=== PATIENT | male | born 1975 | race Caucasian/White ===

== ENCOUNTER → 2023-03-09 16:15 | Outpatient (CLI) | payer SELFPAY ==
--- NOTE | 2023-03-09 16:22 | DI.RAD.S_ITS ---
PROCEDURE: XR FOREARM RT 2V INDICATIONS: right arm injury TECHNIQUE: 2 views of the forearm were acquired. COMPARISON: None. FINDINGS: Bones: Minimally displaced intra-articular radial head fracture is redemonstrated. Otherwise, no acute fractures within the radius or ulna. No suspicious bony lesions. Soft tissues: No suspicious soft tissue calcifications or masses. IMPRESSION: Minimally displaced intra-articular radial head fracture is redemonstrated. Otherwise, no acute fractures within the radius or ulna. Dictated by: Damián Alegria M.D. on 03/09/2023 at 17:02 Approved by: Damián Alegria M.D. on 03/09/2023 at 17:03
--- NOTE | 2023-03-09 16:22 | DI.RAD.S_ITS ---
PROCEDURE: XR WRIST RT MIN 3V INDICATIONS: right arm injury TECHNIQUE: 4 views of the wrist were acquired. COMPARISON: None. FINDINGS: Bones: No fractures or dislocations. No suspicious bony lesions. Soft tissues: No suspicious soft tissue calcifications. IMPRESSION: No acute fracture or dislocation is seen. Dictated by: Damián Alegria M.D. on 03/09/2023 at 17:01 Approved by: Damián Alegria M.D. on 03/09/2023 at 17:01
--- NOTE | 2023-03-09 16:22 | DI.RAD.S_ITS ---
PROCEDURE: XR HAND RT MIN 3V INDICATIONS: right lower arm injury TECHNIQUE: 3 views of the hand(s) acquired. COMPARISON: None. FINDINGS: Bones: No fractures or dislocations. Carpal bones are normally aligned. No suspicious bony lesions. Soft tissues: No suspicious soft tissue calcifications. IMPRESSION: No acute bony abnormality. Dictated by: Damián Alegria M.D. on 03/09/2023 at 17:01 Approved by: Damián Alegria M.D. on 03/09/2023 at 17:02
--- NOTE | 2023-03-09 16:22 | DI.RAD.S_ITS ---
PROCEDURE: XR ELBOW RT MIN 3V INDICATIONS: right arm injury TECHNIQUE: 3 views of the elbow were acquired. COMPARISON: None. FINDINGS: Bones: Minimally displaced radial head fracture with intra-articular extension. No suspicious bony lesions. Soft tissues: Small elbow joint effusion. No suspicious soft tissue calcifications. IMPRESSION: Minimally displaced intra-articular radial head fracture. Dictated by: Damián Alegria M.D. on 03/09/2023 at 17:00 Approved by: Damián Alegria M.D. on 03/09/2023 at 17:01
== END ==
LOC: DI 16:20
PROVIDERS: Referring Provider Physician Assistant; Visit Provider Physician Assistant
DX: S52.124A Nondisplaced fracture of head of right radius, initial encounter for closed fracture (principal); S59.911A Unspecified injury of right forearm, initial encounter; X58.XXXA Exposure to other specified factors, initial encounter
CPT/HCPCS: 73080; 73090; 73110; 73130

== ENCOUNTER → 2023-05-30 14:16 | Outpatient (CLI) | payer SELFPAY ==
[2023-05-30 15:10] LABS: Add Manual Diff / Slide Review NO; Basophils Absolute Auto 0 /uL (0-100); Basophils Percent Auto 0.5 % (0-2); Eosinophils Absolute Auto 500 /uL (0-450); Eosinophils Percent Auto 5.5 % (2-4); Hematocrit 44.8 % (41-53); Hemoglobin 15.5 g/dL (13.5-17.5); Lymphocytes Absolute Auto 1400 /uL (1100-4500); Lymphocytes Percent Auto 13.9 % (25-40); Mean Corpuscular HGB Conc 34.6 % (30-36); Mean Corpuscular Hemoglobin 31.7 PG (26-34); Mean Corpuscular Volume 91.5 fL (80-100); Monocytes Absolute Auto 800 /uL (0-900); Monocytes Percent Auto 7.7 % (3-14); Neutrophils Absolute Auto 7300 /uL (1500-7000); Neutrophils Percent Auto 72.4 % (50-75); Platelet Count 287 X10^3/uL (150-400); Red Cell Distribution Width 13.4 % (11.6-14.8)
[2023-05-30 15:16] LABS: Hemoglobin A1C% w Est Avg Glu 5.3 % (4.0-6.0)
[2023-05-30 15:33] LABS: Alanine Aminotransferase 41 IU/L (<50); Albumin 4.4 g/dL (3.5-5.0); Albumin Globulin Ratio 1.2 (1.0-2.8); Alkaline Phosphatase 82 U/L (38-126); Aspartate Aminotransferase 36 IU/L (17-59); BUN Creatinine Ratio 9.1 (6-22); Bilirubin Total 1.9 mg/dL (0.2-1.3); Blood Urea Nitrogen 10 mg/dL (9-20); Calcium 9.7 mg/dL (8.4-10.2); Carbon Dioxide 26 mmol/L (22-32); Chloride 98 mmol/L (98-107); Cholesterol 195 mg/dL (140-199); Estimated Glomerular Filt Rate > 60 mL/min (>60); Globulin 3.6 g/dL (1.7-4.1); Glucose 121 mg/dL (70-100); HDL Cholesterol 69 mg/dL (40-60); HEMOLYSIS < 15 (0-50); LDL Cholesterol Calculated 98 mg/dL (<100); Potassium 3.7 mmol/L (3.4-5.1); Sodium 136 mmol/L (137-145); Triglycerides 138 mg/dL (35-150)
== END ==
LOC: LAB 14:21
PROVIDERS: PCP Family Medicine; Referring Provider Family Medicine; Visit Provider Family Medicine
DX: Z13.6 Encounter for screening for cardiovascular disorders (principal); S06.9XAA Unspecified intracranial injury with loss of consciousness status unknown, initial encounter; E66.9 Obesity, unspecified
CPT/HCPCS: 36415; 80053; 80061; 83036; 85025

== ENCOUNTER 2023-10-21 12:34 | Inpatient (IN) | payer OTHER, MEDICAID, SELFPAY ==
[2023-10-21] VITALS (19 sets, daily range): BP systolic 134–212; BP diastolic 101–134; PULSE 72–126; RESP 16–29; TEMP 36.8–37.9; O2SAT 93–98; BMI 32.7
[2023-10-21 12:53] LABS: Add Manual Diff / Slide Review NO; Basophils Absolute Auto 100 /uL (0-100); Basophils Percent Auto 0.4 % (0-2); Eosinophils Absolute Auto 0 /uL (0-450); Eosinophils Percent Auto 0.1 % (2-4); Hematocrit 49.1 % (41-53); Hemoglobin 16.9 g/dL (13.5-17.5); Lymphocytes Absolute Auto 2000 /uL (1100-4500); Lymphocytes Percent Auto 9.6 % (25-40); Mean Corpuscular HGB Conc 34.4 % (30-36); Mean Corpuscular Hemoglobin 30.6 PG (26-34); Monocytes Absolute Auto 1000 /uL (0-900); Monocytes Percent Auto 5.1 % (3-14); Neutrophils Absolute Auto 17200 /uL (1500-7000); Neutrophils Percent Auto 84.8 % (50-75); Platelet Count 293 X10^3/uL (150-400); Red Blood Cell Count 5.51 X10^6/uL (4.5-5.9); White Blood Cell Count 20.3 X10^3/uL (4.5-11.0)
--- NOTE | 2023-10-21 12:57 | ED.GENADULT ---
HPI - General Adult General Chief complaint: Abdominal Pain Stated complaint: seizures, rapid heartbeat Time Seen by Provider: 10/21/23 12:44 Source: patient Mode of arrival: Family Vehicle History of Present Illness HPI narrative: Patient is a 48-year-old male. History of TBI, cocaine use, seizure disorder who is here for evaluation of what she described as seizures this morning but he actually did not have a seizure today. He did use cocaine within the past week. He is here for palpitations, rapid heartbeat, chest pain, abdominal pain, decreased urine output. He was able to take his Keppra dose this morning did not vomit afterwards. All of his symptoms started about 0400 hours in the morning. He did not having the symptoms yesterday. Related Data Previous Rx's Medication Instructions Recorded levetiracetam 750 mg tablet 750 mg PO BID #180 tabs 10/20/23 Allergies Allergy/AdvReac Type Severity Reaction Status Date / Time No Known Drug Allergies Allergy Verified 10/21/23 12:45 Review of Systems Review of Systems ROS Unobtainable: All systems reviewed & are unremarkable except as noted in HPI and below Patient History Medical History Epilepsy (~2021) TBI (traumatic brain injury) Social History marital status: details: Moved from [facility]. 3 step boys. occupational status: employed (self employed) current occupational exposures/hazards: No Smoking Status: Current every day smoker Smoking Status: Current every day smoker alcohol intake frequency: 0-2 drinks per day Substance Use Type: marijuana and crack/cocaine Exam Initial Vital Signs Initial Vital Signs: Vital Signs Temperature 98.2 F 10/21/23 12:40 Pulse Rate 72 10/21/23 12:40 Respiratory Rate 16 10/21/23 12:40 Blood Pressure 202/127 H 10/21/23 12:40 Pulse Oximetry 98 10/21/23 12:40 Oxygen Delivery Method Room Air 10/21/23 12:40 Const General: cooperative HENMT Head: normal to inspection and normocephalic Resp Effort & Inspection: normal respiratory effort Auscultation: clear to auscultation bilaterally Cardio Rate: regular rate Rhythm: regular rhythm GI Inspection: non-distended Palpation: No firm, No guarding and tender Skin General: no rashes or lesions noted Neuro General: patient alert, patient awake and moves all extremities Course Orders Ordered: ED Orders 10/21/23 12:44 Complete Blood Count AUTO DIFF Stat Comprehensive Metabolic Panel Stat Ethanol (ETOH) Stat Lipase Stat Troponin & CK Cardiac Panel Stat 10/21/23 12:45 EKG-12 Lead Stat 10/21/23 12:59 CT angio chest abdomen pelvis Stat Sodium Chloride (Normal Saline 0.9%) 1,000 mls @ 150 mls/hr IV CONT EMILY Last Admin: 10/21/23 14:45 Dose: 150 mls/hr Documented By: GABRIEL Ondansetron HCl (Ondansetron 4 Mg/2 Ml Inj) 4 mg IV NOW PRN PRN Reason: Nausea And Vomiting Last Admin: 10/21/23 14:56 Dose: 4 mg Documented By: YIN Ondansetron HCl (Ondansetron 4 Mg Odt) 4 mg PO NOW PRN PRN Reason: Nausea And Vomiting Discontinued Medications Morphine Sulfate (Morphine 4 Mg/Ml Inj) 4 mg IV NOW ONE Stop: 10/21/23 14:32 Last Admin: 10/21/23 14:44 Dose: 4 mg Documented By: GABRIEL Vital Signs Vital signs: Vital Signs - 8 hr 10/21/23 12:40 Temperature 98.2 F Pulse Rate 72 Respiratory Rate 16 Blood Pressure 202/127 H Pulse Oximetry 98 Oxygen Delivery Method Room Air Medical Decision Making Lab Data Lab results reviewed: Yes I reviewed the patient's lab results. 10/21/23 12:44 10/21/23 12:44 Labs: Lab Results 10/21/23 Range/Units 12:44 WBC 20.3 H (4.5-11.0) X10^3/uL RBC 5.51 (4.5-5.9) X10^6/uL Hgb 16.9 (13.5-17.5) g/dL Hct 49.1 (41-53) % MCV 89.0 (80-100) fL MCH 30.6 (26-34) PG MCHC 34.4 (30-36) % RDW 13.0 (11.6-14.8) % Plt Count 293 (150-400) X10^3/uL Neut % (Auto) 84.8 H (50-75) % Lymph % (Auto) 9.6 L (25-40) % Day % (Auto) 5.1 (3-14) % Eos % (Auto) 0.1 L (2-4) % Baso % (Auto) 0.4 (0-2) % Neut # (Auto) 73469 H (0578-5762) /uL Lymph # (Auto) 2000 (0712-0315) /uL Day # (Auto) 1000 H (0-900) /uL Eos # (Auto) 0 (0-450) /uL Baso # (Auto) 100 (0-100) /uL Sodium 136 L (137-145) mmol/L Potassium 3.6 (3.4-5.1) mmol/L Chloride 102 (98-107) mmol/L Carbon Dioxide 23 (22-32) mmol/L BUN 11 (9-20) mg/dL Creatinine 0.86 (0.66-1.25) mg/dL Estimated GFR > 60 (>60) mL/min BUN/Creatinine Ratio 12.8 (6-22) Glucose 116 H (70-100) mg/dL Calcium 8.4 (8.4-10.2) mg/dL Total Bilirubin 1.5 H (0.2-1.3) mg/dL AST 40 (17-59) IU/L ALT 33 (<50) IU/L Alkaline Phosphatase 107 (38-126) U/L Total Creatine Kinase 201 H (55-170) U/L Troponin I < 0.012 (0.01-0.034) ng/mL Total Protein 8.2 (6.3-8.2) g/dL Albumin 4.5 (3.5-5.0) g/dL Globulin 3.7 (1.7-4.1) g/dL Albumin/Globulin Ratio 1.2 (1.0-2.8) Lipase 2769 H (23-300) U/L Ethyl Alcohol < 10 ( - 10) mg/dL Imaging Data CT chest/ab/pelvis: Radiologist's Impression: PROCEDURE: CT ANGIO CHEST ABDOMEN PELVIS INDICATIONS: Chest and abdominal pain, recent cocaine use TECHNIQUE: Precontrast 5 mm thick sections acquired from the lung apices to the iliac crests. After the administration of intravenous contrast, 2.5 mm thick sections again acquired from the lung apices to the iliac crests. Maximum intensity projection (MIP) oblique sagittal and coronal reformats were then acquired. For radiation dose reduction, the following was used: automated exposure control. COMPARISON: None. FINDINGS: Image quality: Diagnostic. AORTA: No aortic aneurysm. No acute aortic syndrome. CHEST: Lower Neck: No enlarged lymph nodes. Thyroid: No thyroid nodules which require sonographic evaluation. Axillae: No enlarged lymph nodes. Chest Wall: Unremarkable. Lungs and Pleura: No pneumothorax or pleural effusions. No consolidation or suspicious nodules. Heart: Heart size is normal. No pericardial effusion. Thoracic Vessels: Pulmonary arteries demonstrate normal size. Mediastinum and Renea: No enlarged lymph nodes. Esophagus: No wall thickening. No hiatal hernia. ABDOMEN: Liver: No solid mass. Gallbladder: No radiopaque gallstones or wall thickening. Biliary ducts: No biliary dilation. Pancreas: Homogeneous enhancement of the pancreas. Diffuse peripancreatic fat stranding. No adjacent vascular abnormality. No acute peripancreatic collection. Spleen: Size is within normal limits. Adrenal Glands: No adrenal nodules. Kidneys and Ureters: No hydronephrosis. No solid mass. No complex renal cystic lesion which requires follow up. Stomach and Bowel: Normal colonic caliber, without significant wall thickening. Peritoneum: Small volume ascites. Ventral Wall: Small umbilical hernia containing fat. Abdominal Nodes: No retroperitoneal or mesenteric adenopathy by size criteria. Vessels: Inferior vena cava is normal in size. PELVIS: Pelvic Organs: Unremarkable. Bladder: Unremarkable. Pelvic Nodes: No enlarged lymph nodes. Miscellaneous: Small inguinal hernias containing fat, left greater than right. Bones: Grade 1 anterolisthesis of L5 on S1 secondary to pars defects. IMPRESSION: No evidence of acute aortic syndrome. Acute interstitial pancreatitis without vascular complication or acute peripancreatic collection. Grade 1 anterolisthesis of L5 on S1 secondary to pars defects. ECG Data Attestation: I personally reviewed and interpreted this ECG as follows: Interpretation: Sinus rhythm Ventricular rate is 77 LVH Normal axis No ST T wave changes MDM Narrative Medical decision making narrative: Patient is a 48-year-old male. Unsure was whether not he actually had seizure-like activity earlier today but he was having upper abdominal discomfort and chest discomfort. It is also having vomiting. His lipase is elevated. CT scan shows acute pancreatitis and this does fit with his presentation today. Discussed the need for admission with the patient. Discussed the case with Dr. Perry hospitalist on-call who will admit for further evaluation and treatment. Discharge Plan Departure Patient Disposition: Admitted As Inpatient Clinical Impression: Acute pancreatitis Admit Date/Time: 10/21/23 16:12 Admit Provider: Simón Perry
--- NOTE | 2023-10-21 13:04 | EKG_ITS ---
[place] [id number] [address] [place] [id number] Test Date: 2023-10-21 Pat Name: Beverly Neal Department: [facility] Room: Gender: Male Spa Technician: LAILA : 1975 Requested By: Order Number: [id number] Reading MD: Simón Perry Measurements Intervals [place] Rate: 77 P: 28 WA: 164 QRS: 14 QRSD: 106 T: 28 QT: 404 QTc: 457 Interpretive Statements Normal sinus rhythm Minimal voltage criteria for LVH, may be normal variant ( Reynaldo product ) Electronically Signed On 10-23-2023 9:44:45 PDT by Simón Perry
[2023-10-21 13:07] LABS: Alanine Aminotransferase 33 IU/L (<50); Albumin 4.5 g/dL (3.5-5.0); Albumin Globulin Ratio 1.2 (1.0-2.8); Alkaline Phosphatase 107 U/L (38-126); Aspartate Aminotransferase 40 IU/L (17-59); BUN Creatinine Ratio 12.8 (6-22); Bilirubin Total 1.5 mg/dL (0.2-1.3); Blood Urea Nitrogen 11 mg/dL (9-20); Calcium 8.4 mg/dL (8.4-10.2); Carbon Dioxide 23 mmol/L (22-32); Chloride 102 mmol/L (98-107); Estimated Glomerular Filt Rate > 60 mL/min (>60); Globulin 3.7 g/dL (1.7-4.1); Glucose 116 mg/dL (70-100); Potassium 3.6 mmol/L (3.4-5.1); Sodium 136 mmol/L (137-145); Total Protein 8.2 g/dL (6.3-8.2)
[2023-10-21 13:15] LABS: Creatine Kinase 201 U/L (55-170); Ethanol (ETOH) < 10 mg/dL
[2023-10-21 13:26] LABS: Lipase 2769 U/L (23-300)
[2023-10-21 13:28] LABS: HEMOLYSIS 27 (0-50); Troponin I < 0.012 ng/mL (0.01-0.034)
[2023-10-21] MEDS: MORPHINE 4 MG/ML INJ IV (14:44)
[2023-10-21] MEDS: SODIUM CHLORIDE 0.9% 1,000 ML 150 ML IV (14:45)
[2023-10-21] MEDS: ONDANSETRON 4 MG/2 ML INJ IV (14:56)
--- NOTE | 2023-10-21 16:11 | P.HP_ITS ---
History of Present Illness History of Present Illness Date Patient Seen: 10/21/23 Time Patient Seen: 16:44 Chief complaint: seizures, rapid heartbeat Narrative: From ED notes: Patient is a 48-year-old male. History of TBI, cocaine use, seizure disorder who is here for evaluation of what she described as seizures this morning but he actually did not have a seizure today. He did use cocaine within the past week. He is here for palpitations, rapid heartbeat, chest pain, abdominal pain, decreased urine output. He was able to take his Keppra dose this morning did not vomit afterwards. All of his symptoms started about 0400 hours in the morning. He did not having the symptoms yesterday. S: The patient was somewhat vague and does not speak very much. He would several days of abdominal pain which is epigastric without radiation to the back. He has had vomiting since this morning. No hematemesis. He denies a history of pancreatitis but does have about 2 alcoholic beverages a day. He denies any diarrhea or rectal bleeding. No recent fevers, or chills. He lives in [place], with his . He has had some upper and lower abdominal pain. His blood pressure is 200 systolic upon arrival to the floor. He was also elevated in the ED, he denies a history of hypertension and saw the doctor yesterday and said his blood pressure was checked. [facility] Medical History Epilepsy (~2021) TBI (traumatic brain injury) Social History marital status: details: Moved from [facility]. 3 step boys. occupational status: employed (self employed) current occupational exposures/hazards: No Smoking Status: Current every day smoker Meds Home Medications and Allergies Home Medications Medication Instructions Recorded Confirmed Type levetiracetam 750 mg tablet 750 mg PO BID #180 tabs 10/20/23 10/20/23 Rx Allergies Allergy/AdvReac Type Severity Reaction Status Date / Time No Known Drug Allergies Allergy Verified 10/21/23 12:45 Review of Systems Review of Systems Narrative: All else reviewed and otherwise unremarkable except as noted in the history and physical. Exam Vital Signs (past 8 hours): - 10/21/23 12:40 Temperature 98.2 F Pulse Rate 72 Respiratory Rate 16 Blood Pressure 202/127 H Pulse Oximetry 98 Oxygen Delivery Method Room Air Oxygen Delivery Method Room Air Narrative Exam Narrative: NAD, alert and oriented, fluent speech, flat. Normocephalic skull, EOMI, anicteric sclera, symmetric pupils. Oropharynx unremarkable, no droop. Neck supple, midline trachea, no adenopathy. Lungs clear, normal rate and effort. Heart regular, no murmur gallop or rub. Abdomen is soft, non distended and is tender in the epigastric region. No guarding or rebound. Extremities are free of edema. Skin is free of rash or lesions. Joints are not swollen or deformed. Judgment appears to be normal. Objective Imaging CT scan - abdomen: Radiologist's impression: No evidence of acute aortic syndrome. Acute interstitial pancreatitis without vascular complication or acute peripancreatic collection. Grade 1 anterolisthesis of L5 on S1 secondary to pars defects. Labs 10/21/23 12:44 10/21/23 12:44 Labs: Laboratory Results - last 24 hr 10/21/23 12:44 WBC 20.3 H RBC 5.51 Hgb 16.9 Hct 49.1 MCV 89.0 MCH 30.6 MCHC 34.4 RDW 13.0 Plt Count 293 Neut % (Auto) 84.8 H Lymph % (Auto) 9.6 L Davis % (Auto) 5.1 Eos % (Auto) 0.1 L Baso % (Auto) 0.4 Neut # (Auto) 91475 H Lymph # (Auto) 2000 Davis # (Auto) 1000 H Eos # (Auto) 0 Baso # (Auto) 100 Sodium 136 L Potassium 3.6 Chloride 102 Carbon Dioxide 23 BUN 11 Creatinine 0.86 Estimated GFR > 60 BUN/Creatinine Ratio 12.8 Glucose 116 H Calcium 8.4 Total Bilirubin 1.5 H AST 40 ALT 33 Alkaline Phosphatase 107 Total Creatine Kinase 201 H Troponin I < 0.012 Total Protein 8.2 Albumin 4.5 Globulin 3.7 Albumin/Globulin Ratio 1.2 Lipase 2769 H Ethyl Alcohol < 10 Assessment & Plan Assessment & Plan narrative: 1. Acute idiopathic pancreatitis, present on admission and active. 2. Remote TBI, present on admission and active. 3. Cocaine abuse, present on admission and active. 4. Chronic seizure disorder, present on admission and stable. PLAN: -bowel rest -analgesia -serial abdominal exam -continue seizure medications He is full resuscitation. Proxy decision maker is . He was admitted inpatient status with an anticipated 2 midnight medical necessity for hospital services. Time Spent With Patient Time with patient: 30 to 49 minutes with 50% spent counseling/coordinating care Quality MIPS - Admit I confirm the patient?s Advance Care Plan is present, Code status is documented, Surrogate decision maker is in patient?s record [If Yes, STOP here]: Yes MIPS - Meds 'Current medications' to include all prescriptions, [id number] products, herbals, cannabis/cannabidiol products, and vitamin/mineral/dietary (nutritional) supplements. I have utilized all available resources to obtain, update, or review the patient?s current medications. [If Yes, STOP here]: Yes
--- NOTE | 2023-10-21 17:32 | PC.NURSE ---
MD Betancourt aware of pt bp running 200s/100s. Pt states he does not know what his BP usually runs, pt does not take home bp meds, denies CP, pt does endorse cocaine usage (none in the last 48 hours).
[2023-10-21] MEDS: DEXTROSE 5%-0.9% NS 1,000 ML 100 ML IV (17:57)
[2023-10-21] MEDS: HYDROMORPHONE 0.5 MG INJ IV ×3 (17:57→22:17)
[2023-10-21] MEDS: OXYCODONE IR 5 MG TABLET PO (17:57)
[2023-10-21] MEDS: ACETAMINOPHEN 325 MG TABLET 650 MG PO (18:32)
[2023-10-21] MEDS: HYDRALAZINE 20 MG/ML VIAL 10 MG IV ×2 (18:33→22:22)
--- NOTE | 2023-10-21 18:58 | PC.NURSE ---
Dayshift: Pt arrived to floor from ED with elevated SBP > 200. Pt rating pain 10/10. Administed IV Dilaudid and PO Oxy. MD Perry aware and at bedside. Rechecked BP 30 min later, still > 190, gave IV hydralazine per MD order. Pt sleeping and stating pain is slightly more tolerable. Rechecked BP 15 min after administration of hydralazine, BP 179/124 and HR 124. Notified MD Perry again, who stated no further action needed at this time. Will continue to closely monitor.
[2023-10-21] MEDS: HEPARIN 5,000 UNIT/ML VIAL 5000 UNIT SUBCUT (20:12)
[2023-10-21] MEDS: levETIRAcetam 250 MG TABLET 750 MG PO (20:12)
[2023-10-22] MEDS: HYDROMORPHONE 0.5 MG INJ IV ×10 (00:46→23:21)
[2023-10-22 01:48] LABS: Appearance Urine UA CLEAR; Bilirubin Urine UA 1+ (NEGATIVE); Color Urine UA YELLOW; Glucose Urine UA NEGATIVE (Negative); Ketones Urine UA TRACE (NEGATIVE); Leukocyte Esterase Urine UA NEGATIVE (NEGATIVE); Occult Blood Urine UA NEGATIVE (Negative); Protein Urine UA 1+ (Negative); Specific Gravity Urine UA >=1.030 (1.000-1.035); pH Urine UA 5.5 (4.5-8.0)
[2023-10-22 02:05] LABS: Bacteria Urine None Seen; Culture Indicated Urine Cult Not Indicated; Ictotest Urine Negative (Negative); Nitrite Urine UA NEGATIVE (Negative); RBC Urine None Seen (0-5/HPF); Squamous Epithelial Cell Urine 0-1 /HPF (0-5/HPF); Urine Volume 10mL (spun); WBC Urine None Seen (0-5/HPF)
[2023-10-22] MEDS: DEXTROSE 5%-0.9% NS 1,000 ML 100 ML IV ×3 (02:53→20:44)
[2023-10-22 06:35] LABS: Alanine Aminotransferase 23 IU/L (<50); Albumin 3.7 g/dL (3.5-5.0); Albumin Globulin Ratio 1.2 (1.0-2.8); Alkaline Phosphatase 80 U/L (38-126); Aspartate Aminotransferase 28 IU/L (17-59); BUN Creatinine Ratio 10.4 (6-22); Bilirubin Total 1.8 mg/dL (0.2-1.3); Blood Urea Nitrogen 8 mg/dL (9-20); Carbon Dioxide 23 mmol/L (22-32); Chloride 107 mmol/L (98-107); Estimated Glomerular Filt Rate > 60 mL/min (>60); Globulin 3.1 g/dL (1.7-4.1); Glucose 180 mg/dL (70-100); HEMOLYSIS < 15 (0-50); Potassium 3.5 mmol/L (3.4-5.1); Sodium 137 mmol/L (137-145); Total Protein 6.8 g/dL (6.3-8.2)
--- NOTE | 2023-10-22 07:59 | P.PN_ITS ---
Subjective Subjective Interval history: Patient is a 48-year-old male. History of TBI, cocaine use, seizure disorder who is here for evaluation of what she described as seizures this morning but he actually did not have a seizure today. He did use cocaine within the past week. He is here for palpitations, rapid heartbeat, chest pain, abdominal pain, decreased urine output. He was able to take his Keppra dose this morning did not vomit afterwards. All of his symptoms started about 0400 hours in the morning. He did not having the symptoms yesterday. S: He was still having significant epigastric pain, but is somewhat better than yesterday. No nausea. Laboratories are pending. Exam Vital Signs (past 8 hours): Oxygen Delivery Method Room Air Oxygen Flow Rate 0 Narrative Exam Narrative: NAD, alert and oriented. Fluent speech. Lungs are clear, normal rate and effort. Heart is regular, no murmur gallop or rub. Abdomen is soft, non distended. There is mild epigastric tenderness. Extremities are free of edema. Objective Labs 10/21/23 12:44 10/22/23 05:56 Labs: Laboratory Results - last 24 hr 10/21/23 10/22/23 10/22/23 12:44 00:50 05:56 WBC 20.3 H RBC 5.51 Hgb 16.9 Hct 49.1 MCV 89.0 MCH 30.6 MCHC 34.4 RDW 13.0 Plt Count 293 Neut % (Auto) 84.8 H Lymph % (Auto) 9.6 L Lamar % (Auto) 5.1 Eos % (Auto) 0.1 L Baso % (Auto) 0.4 Neut # (Auto) 72966 H Lymph # (Auto) 2000 [place] # (Auto) 1000 H Eos # (Auto) 0 Baso # (Auto) 100 Sodium 136 L 137 Potassium 3.6 3.5 Chloride 102 107 Carbon Dioxide 23 23 BUN 11 8 L Creatinine 0.86 0.77 Estimated GFR > 60 > 60 BUN/Creatinine Ratio 12.8 10.4 Glucose 116 H 180 H Calcium 8.4 8.0 L Total Bilirubin 1.5 H 1.8 H AST 40 28 ALT 33 23 Alkaline Phosphatase 107 80 Total Creatine Kinase 201 H Troponin I < 0.012 Total Protein 8.2 6.8 Albumin 4.5 3.7 Globulin 3.7 3.1 Albumin/Globulin Ratio 1.2 1.2 Lipase 2769 H Urine Color Yellow Urine Appearance Clear Urine pH 5.5 Ur Specific Letcher >=1.030 H Urine Protein 1+ H Urine Glucose (UA) Negative Urine Ketones Trace H Urine Occult Blood Negative Urine Nitrate Negative Urine Bilirubin 1+ H Ur Bilirubin Confirm Negative Urine Urobilinogen 1.0 Ur Leukocyte Esterase Negative Urine RBC None seen Urine WBC None seen Ur Squamous Epith Cells 0-1 /hpf Urine Bacteria None seen Ur Culture Indicated? Cult not indicated Vol Urine Centrifuged 10ml (spun) Ethyl Alcohol < 10 PFSH Medical History Epilepsy (~2021) TBI (traumatic brain injury) Social History marital status: details: Moved from [facility]. 3 step boys. household members: spouse occupational status: employed (self employed) current occupational exposures/hazards: No Smoking Status: Current every day smoker Assessment & Plan Assessment & Plan narrative: 1. Acute idiopathic pancreatitis, present on admission and active. 2. Remote TBI, present on admission and active. 3. Cocaine abuse, present on admission and active. 4. Chronic seizure disorder, present on admission and stable. 5. Hypertensive urgency, present on admission and improving. PLAN: -bowel rest -analgesia -serial abdominal exam -continue seizure medications -check lipids, Lipase. -start amlodipine 5 mg daily. JACOBY: 10/23. Pending improvement of pain and ability to eat. He is full resuscitation. Proxy decision maker is . He was admitted inpatient status with an anticipated 2 midnight medical necessity for hospital services.
[2023-10-22 08:47] VITALS: BP 137/106; PULSE 110; RESP 18; TEMP 36.8; O2SAT 95
[2023-10-22] MEDS: HEPARIN 5,000 UNIT/ML VIAL 5000 UNIT SUBCUT ×2 (09:21→20:43)
[2023-10-22] MEDS: levETIRAcetam 250 MG TABLET 750 MG PO ×2 (09:21→20:43)
[2023-10-22 11:13] LABS: Hematocrit 47.6 % (41-53); Hemoglobin 16.2 g/dL (13.5-17.5); Mean Corpuscular HGB Conc 34.1 % (30-36); Mean Corpuscular Hemoglobin 30.8 PG (26-34); Mean Corpuscular Volume 90.3 fL (80-100); Platelet Count 187 X10^3/uL (150-400); Red Blood Cell Count 5.27 X10^6/uL (4.5-5.9); Red Cell Distribution Width 13.4 % (11.6-14.8); White Blood Cell Count 18.8 X10^3/uL (4.5-11.0)
[2023-10-22 11:20] LABS: Lipase 618 U/L (23-300)
[2023-10-22 11:33] LABS: Cholesterol 110 mg/dL (140-199); HDL Cholesterol 36 mg/dL (40-60); LDL Cholesterol Calculated 0 mg/dL (<100); Triglycerides 387 mg/dL (35-150)
[2023-10-22] MEDS: AMLODIPINE 5 MG TABLET PO ×2 (12:19→18:51)
--- NOTE | 2023-10-22 12:21 | CM.DANOTE ---
DCP: Case received, EMR reviewed and met with patient. Introduced self and role. Was able to obtain information in order to complete DCP assessment. DCP assessment completed with information currently available. Patient is a 48 year old male who admitted yesterday afternoon to the care of the hospitalist team. PCP: Dr. Carrillo. Payer: self pay (stacy application given). Patient came to the hospital via private vehicle secondary to having what he thought was a seizure. Notes indicate that he did not have a seizure. Patient does have cocaine history use, and had used within the past week. Patient came in with heart palpitatins, abdominal pain. CT scan noted elevated lipase. He was diagnosed with acute pancreatitis. Patient does have history of seizure disorder. He is currently receiving pain meds for epigastric pain. Met with patient in his room. He was laying in bed, some pain noted. Confirmed that he is self employed and resides here in [place], with partner, Norma. He confirms that he has no medical insurance, is self employed. Collection notes indicated that he had received a Stacy pack, but did not see one in his room. Went ahead and brought him another one. Did send an email to AD counselors to see if he may qualify for any type of [employer]. Confirmed with patient that he is currently active with his provider, Dr. Carrillo. P: DCP to continue to follow for any needs. Plan is home when deemed medically stable. Nell Handy RN/Application Security Engineer Discharge Planning/Care Management CM Discharge Assessment Start: 10/22/23 12:19 Freq: Status: Active Protocol: Document 10/22/23 12:19 (Rec: 10/22/23 12:21 [id number]) Discharge Planning Assessment Assigned Mexican Food Cook Nell Handy RN/Application Security Engineer Advance Directives? No History Provided By Patient Prior Living Arrangements House Household Members spouse Type of transporation used prior to Drives own vehicle admit Independent with ADL's Yes Is patient alert and oriented? Yes Caregiver for Another No Barriers to Discharge Yes Comment Has no medical insurance Discharge Plan Home Transportation Arrangement Family Referrals Initiated None needed Review Status In Process Next Review Type Continued Stay Review
[2023-10-22 16:00] VITALS: BP 148/104; PULSE 117; RESP 17; TEMP 38.3; O2SAT 92
[2023-10-22] MEDS: ACETAMINOPHEN 325 MG TABLET 650 MG PO (18:16)
[2023-10-22 19:00] VITALS: TEMP 37.2
[2023-10-22 20:08] VITALS: BP 143/93; PULSE 111; RESP 19; TEMP 37.3; O2SAT 93
[2023-10-22] MEDS: OXYCODONE IR 5 MG TABLET PO (20:43)
[2023-10-23] MEDS: HYDROMORPHONE 0.5 MG INJ IV ×3 (01:35→06:24)
[2023-10-23 04:49] VITALS: BP 121/89; PULSE 109; RESP 17; TEMP 37.6; O2SAT 93
[2023-10-23 05:31] LABS: Hematocrit 40.3 % (41-53); Hemoglobin 13.7 g/dL (13.5-17.5); Mean Corpuscular HGB Conc 33.9 % (30-36); Mean Corpuscular Hemoglobin 30.9 PG (26-34); Mean Corpuscular Volume 91.1 fL (80-100); Platelet Count 131 X10^3/uL (150-400); Red Blood Cell Count 4.42 X10^6/uL (4.5-5.9); Red Cell Distribution Width 13.3 % (11.6-14.8); White Blood Cell Count 10.6 X10^3/uL (4.5-11.0)
[2023-10-23 05:47] LABS: Alanine Aminotransferase 17 IU/L (<50); Albumin 3.2 g/dL (3.5-5.0); Alkaline Phosphatase 73 U/L (38-126); Aspartate Aminotransferase 21 IU/L (17-59); BUN Creatinine Ratio 9.8 (6-22); Bilirubin Total 1.5 mg/dL (0.2-1.3); Blood Urea Nitrogen 8 mg/dL (9-20); Calcium 7.8 mg/dL (8.4-10.2); Carbon Dioxide 27 mmol/L (22-32); Chloride 107 mmol/L (98-107); Estimated Glomerular Filt Rate > 60 mL/min (>60); Globulin 3.1 g/dL (1.7-4.1); Glucose 155 mg/dL (70-100); HEMOLYSIS < 15 (0-50); Potassium 3.5 mmol/L (3.4-5.1); Sodium 137 mmol/L (137-145); Total Protein 6.3 g/dL (6.3-8.2)
[2023-10-23] MEDS: DEXTROSE 5%-0.9% NS 1,000 ML 100 ML IV ×2 (06:25→16:09)
[2023-10-23 06:38] LABS: Lipase 303 U/L (23-300)
--- NOTE | 2023-10-23 07:56 | P.PN_ITS ---
Subjective Subjective Interval history: He was admitted for pancreatitis without a history of pancreatitis. He drinks 2 alcoholic beverages at night. His lipase was mildly elevated. S: He feels improved today. His abdominal pain is heading the right direction. It is about 4/10. He was passing flatus but no bowel movement. He does feel somewhat weak. He denies any nausea. He would like to try jello today. Exam Vital Signs (past 8 hours): - 10/23/23 04:49 Temperature 99.6 F Pulse Rate 109 H Respiratory Rate 17 Blood Pressure 121/89 Pulse Oximetry 93 Oxygen Flow Rate 0 Oxygen Delivery Method Room Air Oxygen Flow Rate 0 Narrative Exam Narrative: NAD, alert and oriented. Fluent speech. Lungs are clear, normal rate and effort. Heart is regular, no murmur gallop or rub. Abdomen is soft, non distended. There is mild epigastric tenderness without guarding, or rebound. Extremities are free of edema. Objective Labs 10/23/23 04:42 10/23/23 04:42 Labs: Laboratory Results - last 24 hr 10/22/23 10/23/23 05:56 04:42 WBC 18.8 H 10.6 RBC 5.27 4.42 L Hgb 16.2 13.7 Hct 47.6 40.3 L MCV 90.3 91.1 MCH 30.8 30.9 MCHC 34.1 33.9 RDW 13.4 13.3 Plt Count 187 131 L Sodium 137 Potassium 3.5 Chloride 107 Carbon Dioxide 27 BUN 8 L Creatinine 0.82 Estimated GFR > 60 BUN/Creatinine Ratio 9.8 Glucose 155 H Calcium 7.8 L Total Bilirubin 1.5 H AST 21 ALT 17 Alkaline Phosphatase 73 Total Protein 6.3 Albumin 3.2 L Globulin 3.1 Albumin/Globulin Ratio 1.0 Triglycerides 387 H Cholesterol 110 L LDL Cholesterol, Calc 0 HDL Cholesterol 36 L Lipase 618 H D 303 H D [facility] Medical History Epilepsy (~2021) TBI (traumatic brain injury) Social History marital status: details: Moved from [facility]. 3 step boys. household members: spouse occupational status: employed (self employed) current occupational exposures/hazards: No Smoking Status: Current every day smoker Assessment & Plan Assessment & Plan narrative: 1. Acute idiopathic pancreatitis, present on admission and improving. He does drink 2 alcoholic beverages a day per his report. Lipase was 387. 2. Hypertriglycideridemia, , present on admission and active. 3. Remote TBI, present on admission and active. 4. Cocaine abuse, present on admission and active. 5. Chronic seizure disorder, present on admission and stable. 6. Hypertensive urgency, present on admission and improving. PLAN: -advance to full liquids. Increase activity. -analgesia as needed -serial abdominal exam -continue seizure medications -checked lipids, 2769 on admit, 303 today. -started amlodipine 5 mg daily, increased to 10 mg and October 21. Monitor BP (133/97). JACOBY: 10/23-2. Pending improvement of pain and ability to eat. He is full resuscitation. Proxy decision maker is . He was admitted inpatient status with an anticipated 2 midnight medical necessity for hospital services.
[2023-10-23 08:40] VITALS: BP 133/97; PULSE 104; RESP 18; TEMP 37.2; O2SAT 92
[2023-10-23] MEDS: OXYCODONE IR 5 MG TABLET PO ×3 (10:10→20:47)
[2023-10-23] MEDS: AMLODIPINE 5 MG TABLET 10 MG PO (10:10)
[2023-10-23] MEDS: HEPARIN 5,000 UNIT/ML VIAL 5000 UNIT SUBCUT ×2 (10:10→20:47)
[2023-10-23] MEDS: ACETAMINOPHEN 325 MG TABLET 650 MG PO ×2 (10:10→16:09)
[2023-10-23] MEDS: levETIRAcetam 250 MG TABLET 750 MG PO ×2 (10:10→20:47)
--- NOTE | 2023-10-23 14:37 | CM.DPC ---
DCP Cont. Reviewed EMR and team rounds for status updates. Per Hospitalist, anticipate d/c for Tuesday, 10/24. Will continue to monitor for evolving needs.
[2023-10-23 16:00] VITALS: BP 139/97; PULSE 108; RESP 18; TEMP 38.5; O2SAT 93
[2023-10-23 16:09] VITALS: TEMP 38.5
[2023-10-23 17:10] VITALS: TEMP 37.2
[2023-10-23 20:40] VITALS: BP 135/96; PULSE 95; RESP 17; TEMP 37.9; O2SAT 94
[2023-10-24] MEDS: DEXTROSE 5%-0.9% NS 1,000 ML 100 ML IV (01:50)
[2023-10-24 04:30] VITALS: BP 161/108; PULSE 101; RESP 17; TEMP 37.6; O2SAT 95
[2023-10-24 05:41] LABS: Hematocrit 34.7 % (41-53); Hemoglobin 11.9 g/dL (13.5-17.5); Mean Corpuscular HGB Conc 34.3 % (30-36); Mean Corpuscular Hemoglobin 31.2 PG (26-34); Mean Corpuscular Volume 90.8 fL (80-100); Platelet Count 124 X10^3/uL (150-400); Red Blood Cell Count 3.82 X10^6/uL (4.5-5.9); Red Cell Distribution Width 13.2 % (11.6-14.8)
[2023-10-24 06:04] LABS: Alanine Aminotransferase 33 IU/L (<50); Albumin 3.1 g/dL (3.5-5.0); Alkaline Phosphatase 89 U/L (38-126); Aspartate Aminotransferase 45 IU/L (17-59); BUN Creatinine Ratio 5.7 (6-22); Bilirubin Total 1.8 mg/dL (0.2-1.3); Blood Urea Nitrogen 4 mg/dL (9-20); Calcium 7.9 mg/dL (8.4-10.2); Carbon Dioxide 29 mmol/L (22-32); Chloride 104 mmol/L (98-107); Estimated Glomerular Filt Rate > 60 mL/min (>60); Globulin 3.1 g/dL (1.7-4.1); Glucose 136 mg/dL (70-100); HEMOLYSIS < 15 (0-50); Potassium 3.3 mmol/L (3.4-5.1); Sodium 136 mmol/L (137-145); Total Protein 6.2 g/dL (6.3-8.2)
[2023-10-24 06:07] LABS: Lipase 326 U/L (23-300)
[2023-10-24] MEDS: HEPARIN 5,000 UNIT/ML VIAL 5000 UNIT SUBCUT (08:35)
[2023-10-24] MEDS: AMLODIPINE 5 MG TABLET 10 MG PO (08:35)
[2023-10-24] MEDS: levETIRAcetam 250 MG TABLET 750 MG PO (08:35)
--- NOTE | 2023-10-24 10:40 | CM.DPC ---
Addendum entered by KETAN Blanco 10/24/23 11:53: Per Admissions Counselor, pt now has [employer] insurance coverage (Policy #[id number]). Original Note: DCP Continued Reviewed EMR and team rounds for pt?s medical status. No new discharge needs identified at this time. Plan: Anticipating dc home on 10/24 with family when medically stable. CM Team will continue to follow for coordination of discharge plans. PHILL Parr
--- NOTE | 2023-10-24 11:39 | P.DS_ITS ---
History of Present Illness History of Present Illness Date Patient Seen: 10/24/23 Time Patient Seen: 11:39 Chief complaint: seizures, rapid heartbeat Narrative: From ED notes: Patient is a 48-year-old male. History of TBI, cocaine use, seizure disorder who is here for evaluation of what she described as seizures this morning but he actually did not have a seizure today. He did use cocaine within the past week. He is here for palpitations, rapid heartbeat, chest pain, abdominal pain, decreased urine output. He was able to take his Keppra dose this morning did not vomit afterwards. All of his symptoms started about 0400 hours in the morning. He did not having the symptoms yesterday. S: The patient was somewhat vague and does not speak very much. He would several days of abdominal pain which is epigastric without radiation to the back. He has had vomiting since this morning. No hematemesis. He denies a history of pancreatitis but does have about 2 alcoholic beverages a day. He denies any diarrhea or rectal bleeding. No recent fevers, or chills. He lives in [place], with his . He has had some upper and lower abdominal pain. His blood pressure is 200 systolic upon arrival to the floor. He was also elevated in the ED, he denies a history of hypertension and saw the doctor yesterday and said his blood pressure was checked. Discharge Providers Provider Date of admission: 10/21/23 16:12 Discharge Date: 10/24/23 Primary care physician: Soila Carrillo MD Discharge provider: Rogelio Parra DO Summary Hospital Course Discharge Diagnosis: 1. Acute likely alcoholic pancreatitis, present on admission and improving. 2. Hypertriglycideridemia, , present on admission and active. 3. Remote TBI, present on admission and active. 4. Cocaine abuse, present on admission and active. 5. Chronic seizure disorder, present on admission and stable. 6. Hypertensive urgency, present on admission and improving. Hospital Course: This is a 48 year old male with PMH of TBI, seizure disorder who was admitted with acute pancreatitis. This is presumed secondary to alcohol intake. He was given supportive care with bowel rest and pain medications. His diet was slowly advanced and he was able to tolerate a low fat diet on the day of discharge with adequate pain control. His TG were elevated but <500 on admission. There were no gallstones on CT. His BP elevated but this is suspected to be in the setting of pain. After resolution, continued monitoring of his BP is recommended with PCP for possible medication initiation. Time Spent with Patient Time spent: Less than 30 minutes Exam Vital Signs (past 8 hours): - 10/24/23 04:30 Temperature 99.7 F H Pulse Rate 101 H Respiratory Rate 17 Blood Pressure 161/108 H Pulse Oximetry 95 Oxygen Flow Rate 0 Oxygen Delivery Method Room Air Oxygen Flow Rate 0 Narrative Exam Narrative: NAD, alert and oriented. Fluent speech. Lungs are clear, normal rate and effort. Heart is regular, no murmur gallop or rub. Abdomen is soft, non distended. There is mild epigastric tenderness without guarding, or rebound. Extremities are free of edema. Objective Labs 10/24/23 05:26 10/24/23 05:26 Labs: Laboratory Results - last 24 hr 10/24/23 05:26 WBC 7.0 RBC 3.82 L Hgb 11.9 L Hct 34.7 L MCV 90.8 MCH 31.2 MCHC 34.3 RDW 13.2 Plt Count 124 L Sodium 136 L Potassium 3.3 L Chloride 104 Carbon Dioxide 29 BUN 4 L Creatinine 0.70 Estimated GFR > 60 BUN/Creatinine Ratio 5.7 L Glucose 136 H Calcium 7.9 L Total Bilirubin 1.8 H AST 45 ALT 33 Alkaline Phosphatase 89 Total Protein 6.2 L Albumin 3.1 L Globulin 3.1 Albumin/Globulin Ratio 1.0 Lipase 326 H [facility] Medical History Epilepsy (~2021) TBI (traumatic brain injury) Social History marital status: details: Moved from [facility]. 3 step boys. household members: spouse occupational status: employed (self employed) current occupational exposures/hazards: No Smoking Status: Current every day smoker Discharge Plan Discharge Plan Patient Disposition: Home Provider Discharge Comment: You were admitted to the hospital with pancreatitis, improved with bowl rest and supportive care. Discharge orders & Medications Prescriptions: New oxycodone 5 mg Tablet 5 mg PO Q3H PRN (Reason: Pain, Moderate (4-6)) 7 Days Qty: 10 0RF Continued levetiracetam 750 mg tablet 750 mg PO BID Qty: 180 2RF Follow up/Referrals: Soila Carrillo MD [Primary Care Provider] - Diet/Activity/Treatments Diet: Diet as Tolerated and Low-fat Diet comment: Try to avoid any alcohol to reduce risk of recurrence. Activity: As tolerated Visit Report/Discharge Packet Instructions: DI for Pancreatitis, DI for Prescription Opioid Use Stand Alone Forms: Patient Portal/API, Stroke Signs & Symptoms Discharge Data Primary Care Provider: Soila Carrillo
== END 2023-10-24 11:55 | disposition home or self-care (01) | DRG 282 ==
LOC: ED 14:46 → AC 16:13
PROVIDERS: Admitting Provider Hospitalist; Emergency Provider Emergency Medicine; PCP Family Medicine; Referring Provider Emergency Medicine; Visit Provider Hospitalist
DX: K85.20 Alcohol induced acute pancreatitis without necrosis or infection (principal); I16.0 Hypertensive urgency; F17.210 Nicotine dependence, cigarettes, uncomplicated; F14.10 Cocaine abuse, uncomplicated; G40.909 Epilepsy, unspecified, not intractable, without status epilepticus; E78.1 Pure hyperglyceridemia; Z87.820 Personal history of traumatic brain injury
CPT/HCPCS: 36415; 71275; 74174; 80053; 80061; 80320; 81001; 82550; 83690; 84484; 85025; 85027; 93005; 96374; 96375; 99284; J0360; J1170; J1644; J2270; J2405; Q9967

== ENCOUNTER 2024-02-23 12:26 | Emergency (ER) | payer OTHER, MEDICAID, SELFPAY ==
[2023-10-21 21:31] VITALS: BMI 32.7
[2024-02-23] VITALS (23 sets, daily range): BP systolic 159–194; BP diastolic 107–130; PULSE 94–107; RESP 20; TEMP 36.6; O2SAT 91–97; BMI 31.3
--- NOTE | 2024-02-23 12:42 | ED_ITS ---
HPI - General Adult General Chief complaint: Abdominal Pain Stated complaint: abd px, hernia Time Seen by Provider: 02/23/24 12:39 Source: patient Mode of arrival: Wheelchair History of Present Illness HPI narrative: 49-year-old gentleman with a history of traumatic brain injury, seizure disorder, prior cocaine use recent hospital admission to this hospital for acute pancreatitis returns with acute abdominal pain. He has an umbilical hernia that is easily reduced. He states he has not had a bowel movement or passed any gas for all as 24 hours. Symptoms started 24 hours ago. No fevers, cough, chills. Describes the pain as significant. Belly is distended and diffusely tender. No nausea or vomiting, chest pain, shortness for breath, palpitations, fevers or chills. Related Data Previous Rx's Medication Instructions Recorded levetiracetam 750 mg tablet 750 mg PO BID #180 tabs 10/20/23 oxycodone-acetaminophen 5 mg-325 1 tab PO Q6H PRN pain #14 tabs 02/23/24 mg tablet (Percocet) Allergies Allergy/AdvReac Type Severity Reaction Status Date / Time No Known Drug Allergies Allergy Verified 10/21/23 12:45 Review of Systems Review of Systems Narrative: Pertinent positive and negative findings as per HPI Patient History Medical History Epilepsy (~2021) TBI (traumatic brain injury) Social History marital status: details: Moved from [facility]. 3 step boys. household members: spouse occupational status: employed (self employed) current occupational exposures/hazards: No Smoking Status: Former smoker Smoking Status: Former smoker alcohol intake frequency: a few times a week Substance Use Type: marijuana and crack/cocaine Exam Initial Vital Signs Initial Vital Signs: Vital Signs Temperature 97.9 F 02/23/24 12:29 Pulse Rate 107 H 02/23/24 12:29 Respiratory Rate 20 02/23/24 12:29 Blood Pressure 188/130 H 02/23/24 12:29 Pulse Oximetry 97 02/23/24 12:29 Oxygen Delivery Method Room Air 02/23/24 12:29 General: Healthy appearing, complaining of pain but Able to give a complete and coherent history. Well-nourished well-developed HEENT: Moist mucous membranes, normal sclera with reactive pupils, Respiratory: Lungs are clear to auscultation, no wheezing no rales no rhonchi. Full and symmetrical air movement Cardiac: Mild tachycardia without murmurs Abdomen: Abdomen is distended, tympanitic, diffusely tender but not yet showing rebound or guarding. He does have an umbilical hernia that is easily reduced with reduction not influencing his symptoms Skin: Warm and dry, no rashes Neurologic: Grossly neurologically intact with no obvious asymmetries or abnormalities Extremities: No trauma, well perfused Psych: Cooperative, appropriate insight and affect Course Orders Ordered: ED Orders 02/23/24 12:34 EKG-12 Lead Stat 02/23/24 12:40 Complete Blood Count AUTO DIFF Stat Comprehensive Metabolic Panel Stat Lactate (Lactic Acid) Stat Lipase Stat 02/23/24 12:41 CT abdomen pelvis w con Stat 02/23/24 17:14 Ictotest Urine Stat Urinalysis and Microscopic Stat Urine Culture Stat Hydromorphone HCl (Hydromorphone 0.5 Mg Inj) 0.5 mg IV Q15MIN PRN PRN Reason: Pain, Last Admin: 02/23/24 13:02 Dose: 0.5 mg Documented By: BHAVESH Ondansetron HCl (Ondansetron 4 Mg/2 Ml Inj) 4 mg IV NOW PRN PRN Reason: Nausea And Vomiting Ondansetron HCl (Ondansetron 4 Mg Odt) 4 mg PO NOW PRN PRN Reason: Nausea And Vomiting Discontinued Medications Ondansetron HCl (Ondansetron 4 Mg/2 Ml Inj) 4 mg IV NOW ONE Stop: 02/23/24 12:42 Last Admin: 02/23/24 13:02 Dose: 4 mg Documented By: BHAVESH Vital Signs Vital signs: Vital Signs - 8 hr 02/23/24 12:29 02/23/24 13:59 02/23/24 14:00 Temperature 97.9 F Pulse Rate 107 H 97 H Respiratory Rate 20 Blood Pressure 188/130 H 191/128 H Pulse Oximetry 97 95 Oxygen Delivery Method Room Air 02/23/24 14:00 02/23/24 14:15 02/23/24 14:15 Temperature Pulse Rate 96 H 94 H Respiratory Rate Blood Pressure 186/121 H Pulse Oximetry 96 93 Oxygen Delivery Method 02/23/24 14:30 02/23/24 14:30 02/23/24 14:45 Temperature Pulse Rate 95 H 94 H Respiratory Rate Blood Pressure 176/111 H Pulse Oximetry 91 91 Oxygen Delivery Method 02/23/24 14:45 02/23/24 15:00 02/23/24 15:00 Temperature Pulse Rate 95 H Respiratory Rate Blood Pressure 174/113 H 166/111 H Pulse Oximetry 91 Oxygen Delivery Method 02/23/24 15:15 02/23/24 15:15 02/23/24 15:30 Temperature Pulse Rate 99 H Respiratory Rate Blood Pressure 178/115 H 168/111 H Pulse Oximetry 93 Oxygen Delivery Method 02/23/24 15:30 02/23/24 15:45 02/23/24 15:45 Temperature Pulse Rate 101 H 102 H Respiratory Rate Blood Pressure 166/109 H Pulse Oximetry 92 91 Oxygen Delivery Method 02/23/24 16:00 02/23/24 16:00 02/23/24 16:15 Temperature Pulse Rate 104 H Respiratory Rate Blood Pressure 176/116 H 176/113 H Pulse Oximetry 93 Oxygen Delivery Method 02/23/24 16:15 02/23/24 16:30 02/23/24 16:31 Temperature Pulse Rate 95 H 95 H 95 H Respiratory Rate Blood Pressure Pulse Oximetry 92 92 92 Oxygen Delivery Method 02/23/24 16:31 02/23/24 16:45 02/23/24 16:45 Temperature Pulse Rate 95 H Respiratory Rate Blood Pressure 164/109 H 159/111 H Pulse Oximetry 92 Oxygen Delivery Method 02/23/24 17:00 02/23/24 17:00 02/23/24 17:16 Temperature Pulse Rate 97 H 106 H Respiratory Rate Blood Pressure 170/107 H Pulse Oximetry 93 95 Oxygen Delivery Method 02/23/24 17:16 02/23/24 17:30 02/23/24 17:30 Temperature Pulse Rate 97 H Respiratory Rate Blood Pressure 192/121 H 186/117 H Pulse Oximetry 93 Oxygen Delivery Method Medical Decision Making Lab Data 02/23/24 12:40 02/23/24 12:40 Labs: Lab Results 02/23/24 02/23/24 Range/Units 12:40 17:14 WBC 11.2 H (4.5-11.0) X10^3/uL RBC 5.08 (4.5-5.9) X10^6/uL Hgb 16.6 (13.5-17.5) g/dL Hct 47.3 (41-53) % MCV 93.1 (80-100) fL MCH 32.6 (26-34) PG MCHC 35.1 (30-36) % RDW 14.2 (11.6-14.8) % Plt Count 239 (150-400) X10^3/uL Neut % (Auto) 75.0 (50-75) % Lymph % (Auto) 16.2 L (25-40) % [place] % (Auto) 6.7 (3-14) % Eos % (Auto) 1.8 L (2-4) % Baso % (Auto) 0.3 (0-2) % Neut # (Auto) 8400 H (5138-9405) /uL Lymph # (Auto) 1800 (7445-9904) /uL [place] # (Auto) 700 (0-900) /uL Eos # (Auto) 200 (0-450) /uL Baso # (Auto) 0 (0-100) /uL Sodium 139 (137-145) mmol/L Potassium 3.6 (3.4-5.1) mmol/L Chloride 104 (98-107) mmol/L Carbon Dioxide 23 (22-32) mmol/L BUN 7 L (9-20) mg/dL Creatinine 0.66 (0.66-1.25) mg/dL Estimated GFR > 60 (>60) mL/min BUN/Creatinine Ratio 10.6 (6-22) Glucose 124 H (70-100) mg/dL Lactate 1.0 (0.7-2.1) mmol/L Calcium 9.1 (8.4-10.2) mg/dL Total Bilirubin 1.8 H (0.2-1.3) mg/dL AST 60 H (17-59) IU/L ALT 53 H (<50) IU/L Alkaline Phosphatase 124 (38-126) U/L Total Protein 8.2 (6.3-8.2) g/dL Albumin 4.7 (3.5-5.0) g/dL Globulin 3.5 (1.7-4.1) g/dL Albumin/Globulin Ratio 1.3 (1.0-2.8) Lipase 223 (23-300) U/L Urine Color Yellow Urine Appearance Clear Urine pH 5.0 (4.5-8.0) Ur Specific [place] 1.010 (1.000-1.035) Urine Protein Trace H (Negative) Urine Glucose (UA) Negative (Negative) g/dL Urine Ketones Trace H (NEGATIVE) Urine Occult Blood Trace-intact (Negative) Urine Nitrate Positive H (Negative) Urine Bilirubin 1+ H (NEGATIVE) Ur Bilirubin Confirm Negative (Negative) Urine Urobilinogen 0.2 (0.2) E.U./dL Ur Leukocyte Esterase Negative (NEGATIVE) Urine RBC 1-5/hpf (0-5/HPF) Urine WBC 5-10/hpf H (0-5/HPF) Ur Squamous Epith Cells 0-1 /hpf (0-5/HPF) Urine Bacteria Few (2-10) H (None) Ur Culture Indicated? Specimen cultured Vol Urine Centrifuged 10ml (spun) Imaging Data CT scan - abdomen/pelvis: Radiologist's Impression: PROCEDURE: CT ABDOMEN PELVIS W CON INDICATIONS: acute abdominal pain, ? incarcerated hernia TECHNIQUE: After the administration of intravenous contrast, axial sections acquired from the lung bases to the pubic symphysis. Coronal and sagittal reformats were performed. For radiation dose reduction, the following was used: automated exposure control, adjustment of mA and/or kV according to patient size. COMPARISON: [facility], CT, CT ANGIO CHEST ABDOMEN PELVIS, 10/21/2023, 13:51. FINDINGS: Image quality: Diagnostic. Lower Chest: No significant findings. ABDOMEN: Liver: Diffuse hepatic steatosis. Probable interval development of focal area of more significant fatty infiltration present in segment 4 B of the left lobe of the liver. Gallbladder: No radiopaque gallstones or wall thickening. Biliary ducts: No biliary dilation. Pancreas: Previously, there or extensive changes of acute pancreatitis with edema of the pancreas and inflammatory change in the adjacent fat. Now, on relatively short interval follow-up, there is a non enhancing masslike area in the distal body region of the pancreas. This masslike area measures approximately 4.6 x 4.3 cm, and has an appearance which would be highly suspicious for large adenocarcinoma of the pancreas. However, there was no mass present previously. This more likely represents hemorrhagic pancreatitis with a focal mildly necrotic collection. Reference previous axial image 151 of series 5 and previous image 156 of series 5 and current image 48 of series 2. There is some persistent inflammatory change in the mesenteric fat anterior and inferior to the pancreas, improved compared to the previous study. Spleen: Size is within normal limits. Adrenal Glands: No adrenal nodules. Kidneys and Ureters: No hydronephrosis. No solid mass. No complex renal cystic lesion which requires follow up. Stomach and Bowel: Normal colonic caliber, without significant wall thickening. Peritoneum: Very mild pelvic ascites.. No free air. Ventral Wall: Fat containing periumbilical hernia with stranding. The wall defect measures approximately 2.1 cm. Abdominal Nodes: No retroperitoneal or mesenteric adenopathy by size criteria. Vessels: Aorta and inferior vena cava are normal in size. PELVIS: Pelvic Organs: Unremarkable. Bladder: No bladder wall thickening, accounting for underdistention. Pelvic Nodes: No enlarged lymph nodes. Miscellaneous: Bilateral fat containing inguinal hernias are seen. Bones: No aggressive osseous abnormality. IMPRESSION: 1. There is a fat containing periumbilical hernia with some stranding. Question possible incarcerated hernia. 2. Rapid development of a masslike area involving the distal body of the pancreas. It measures 4.6 cm in diameter. Due to the fact that it was not present previously, it is unlikely a pancreatic adenocarcinoma. However, adenocarcinoma is not excluded. Consider hemorrhagic pancreatitis with an area of focal mild a [place] CIS. 3. Diffuse hepatic steatosis with new focal hypodensity likely representing focally more advanced hepatic steatosis. Comment: Recommend 2 month follow-up multiphase CT or multiphase MRI of the pancreas to document lack of growth and possible at least partial resolution of this masslike area in the pancreas. Dictated by: Akhil Arauz M.D. on 02/23/2024 at 13:19 MDM Narrative Medical decision making narrative: CC: 24 hours of acute abdominal pain Complicating co-morbidities: Easily reduced umbilical hernia, recent pancreatitis Data collected from: patient Medical records reviewed: Discharge summary from admission in September for acute pancreatitis and discharge in October 23 is reviewed Differential considered: Incarcerated hernia, bowel obstruction, recurrent pancreatitis, other intra- abdominal infection Exam documented above, pertinent findings include: Patient's abdomen is generally distended. He does have an abdominal hernia that is easily reduced. Remainder of exam is benign Lab Test results independently reviewed as above. Pertinent findings: CBC fairly reassuring. Mild leukocytosis at 11.2 without significant left shift. No anemia Chemistries are notable for stable bilirubin at 1.8. Slight elevation to AST and ALT at 60 and 53 respectively. Lipase is 223, within normal limits Urine has white cells few bacteria and nitrites. It will be cultured. Patient is completely asymptomatic regarding urinary symptoms Imaging studies independently reviewed: CT scan is interesting. There was no evidence of incarcerated hernia, significant constipation or bowel obstruction He has not abnormality described as a masslike area in the distal body of the pancreas that was not present on October 20 with his episode of pancreatitis. Radiologist feels that this represents a hemorrhagic pancreatitis with a focal mildly necrotic collection however patient has no significant anemia minimal white count and absolutely normal lipase actually down from previously. Discussion: 49-year-old gentleman with abdominal tenderness admission at the end of September for pancreatitis. Isn't umbilical hernia that is easily reduced not causing the problem has been referred to surgery. He has given an an abdominal binder to help with this. There is an interesting finding on his CT scan that does not correlate with his physical exam or blood work today. His pain is tolerable and he has extra requested no pain medication in the emergency department so he is able to drive himself home. I believe this needs a follow up CT scan within the next number of months. If his pain continues to increase we will need this evaluate in more detail. There does is a discussion from the radiologist suggesting suspicion for adenocarcinoma however with the abnormality not present at all 3 months ago, that does not fit clinically either. At this time I am going to send the patient home. Prescription for pain medicine is given. Blood pressure remains elevated and I think that is secondary to pain. Again he would prefer to drive home then receive pain medications. Encouraged him to return if symptoms worsen Discharge Plan Departure Patient Disposition: Home Clinical Impression: Abdominal pain Qualifiers: Abdominal location: generalized Qualified Code(s): R10.84 - Generalized abdominal pain Hernia, umbilical Qualifiers: Obstruction and gangrene presence: without obstruction or gangrene Qualified Code(s): K42.9 - Umbilical hernia without obstruction or gangrene Instructions: DI for Abdominal Pain-Adult Activity Restrictions/Additional Instructions: I am sorry that you are having such significant abdominal pain Your blood work was quite reassuring. You are not significantly anemic, there was no signs of overwhelming infection, there is no signs of pancreatitis on your blood work The umbilical hernia that you have is very easily reduced. It is not incarcerated and I do not think that it is causing your abdominal pain. If you want to consider having it fixed, you can call to schedule an appointment with [facility] at [phone]. In the meantime I have given you an abdominal binder. This is basically a wide belt that helps hold the hernia inside for comfort. You can use it as needed The CT scan that we did today does show an abnormality at the tail end of your pancreas. It looks like there may be cyst that perhaps has some blood in it. Given the fact that you do not have a fever, you are not anemic, and your lab tests looking at your pancreas are normal, I do not think that this is something that we need to keep you in the hospital for. I do think that this is something that will need additional follow up likely repeat CT scan to make sure that it is resolving. You need to follow up with your primary care physician in approximately 2 months to discuss this further I have sent a prescription for Percocet, a narcotic pain pill to help with the overall abdominal pain. There CT scan does not suggest that you have any issues with constipation at this time. Percocet can cause constipation and I do recommend takeit with a stool softener. If you find that you are getting worse, having new symptoms or new findings that is very appropriate to return to the emergency department Prescriptions: New oxycodone-acetaminophen [Percocet] 5-325 mg tablet 1 tab PO Q6H PRN (Reason: pain) Qty: 14 0RF No Action levetiracetam 750 mg tablet 750 mg PO BID Qty: 180 2RF Referrals: Soila Carrillo MD [Primary Care Provider] - Stand Alone Forms: Patient Portal/API/Survey
[2024-02-23 12:53] LABS: Add Manual Diff / Slide Review NO; Basophils Absolute Auto 0 /uL (0-100); Basophils Percent Auto 0.3 % (0-2); Eosinophils Absolute Auto 200 /uL (0-450); Eosinophils Percent Auto 1.8 % (2-4); Hematocrit 47.3 % (41-53); Hemoglobin 16.6 g/dL (13.5-17.5); Lymphocytes Absolute Auto 1800 /uL (1100-4500); Lymphocytes Percent Auto 16.2 % (25-40); Mean Corpuscular HGB Conc 35.1 % (30-36); Mean Corpuscular Hemoglobin 32.6 PG (26-34); Mean Corpuscular Volume 93.1 fL (80-100); Monocytes Absolute Auto 700 /uL (0-900); Monocytes Percent Auto 6.7 % (3-14); Neutrophils Absolute Auto 8400 /uL (1500-7000); Platelet Count 239 X10^3/uL (150-400); Red Blood Cell Count 5.08 X10^6/uL (4.5-5.9); Red Cell Distribution Width 14.2 % (11.6-14.8); White Blood Cell Count 11.2 X10^3/uL (4.5-11.0)
[2024-02-23] MEDS: ONDANSETRON 4 MG/2 ML INJ IV (13:02)
[2024-02-23] MEDS: HYDROMORPHONE 0.5 MG INJ IV (13:02)
[2024-02-23 13:04] LABS: Alanine Aminotransferase 53 IU/L (<50); Albumin 4.7 g/dL (3.5-5.0); Albumin Globulin Ratio 1.3 (1.0-2.8); Alkaline Phosphatase 124 U/L (38-126); Aspartate Aminotransferase 60 IU/L (17-59); BUN Creatinine Ratio 10.6 (6-22); Bilirubin Total 1.8 mg/dL (0.2-1.3); Blood Urea Nitrogen 7 mg/dL (9-20); Calcium 9.1 mg/dL (8.4-10.2); Carbon Dioxide 23 mmol/L (22-32); Chloride 104 mmol/L (98-107); Estimated Glomerular Filt Rate > 60 mL/min (>60); Globulin 3.5 g/dL (1.7-4.1); Glucose 124 mg/dL (70-100); HEMOLYSIS 18 (0-50); Lipase 223 U/L (23-300); Potassium 3.6 mmol/L (3.4-5.1); Sodium 139 mmol/L (137-145); Total Protein 8.2 g/dL (6.3-8.2)
[2024-02-23 17:30] LABS: Appearance Urine UA CLEAR; Bilirubin Urine UA 1+ (NEGATIVE); Color Urine UA YELLOW; Glucose Urine UA NEGATIVE (Negative); Ketones Urine UA TRACE (NEGATIVE); Leukocyte Esterase Urine UA NEGATIVE (NEGATIVE); Nitrite Urine UA POSITIVE (Negative); Occult Blood Urine UA TRACE-INTACT (Negative); Protein Urine UA TRACE (Negative); Urobilinogen Urine UA 0.2 E.U./dL (0.2)
[2024-02-23 17:40] LABS: Ictotest Urine Negative (Negative); Urine Volume 10mL (spun)
[2024-02-23 17:41] LABS: Bacteria Urine Few (2-10); Culture Indicated Urine Specimen Cultured; RBC Urine 1-5/HPF (0-5/HPF); Squamous Epithelial Cell Urine 0-1 /HPF (0-5/HPF); WBC Urine 5-10/HPF (0-5/HPF)
== END 2024-02-23 18:54 | disposition home or self-care (01) ==
PROVIDERS: Emergency Provider Emergency Medicine; PCP Family Medicine
DX: R10.84 Generalized abdominal pain (principal); K42.9 Umbilical hernia without obstruction or gangrene
CPT/HCPCS: 36415; 74177; 80053; 81001; 83605; 83690; 85025; 87086; 96374; 96375; 99284; J1171; J2405; Q9967

== ENCOUNTER 2024-11-02 08:37 | Emergency (ER) | payer OTHER, SELFPAY ==
[2023-10-21 21:31] VITALS: BMI 32.7
[2024-11-02] VITALS (28 sets, daily range): BP systolic 161–286; BP diastolic 103–189; PULSE 99–159; RESP 16–30; TEMP 36.8–38.1; O2SAT 91–100
--- NOTE | 2024-11-02 08:47 | DI.RAD.S_ITS ---
PROCEDURE: XR CHEST 1V INDICATIONS: altered mental status TECHNIQUE: One view of the chest was acquired. COMPARISON: None. FINDINGS: Endotracheal tube terminates approximately 4 cm above the gwen. Nasogastric/orogastric tube extends into the left upper abdomen with the distal tip at the expected location of the gastric fundus and the side port at the level of the gastroesophageal junction could be advanced up to 5 cm into the stomach. Mild consolidation left lower hemithorax commonly represents a combination of pleural effusion, atelectatic change, alveolar opacification, pneumonia or other process. Mild bilateral perihilar and lower lobe peribronchial thickening with patchy opacities, some of which may be related expiratory result; however, bronchitis, viral infection, bronchopneumonia, asthma or other process should be considered. Follow-up suggested. Mildly enlarged cardiopericardial silhouette. Mildly prominent byron, pulmonary vessels and/or hilar lymph nodes. No pneumothorax. Tubes, lines and other extrinsic artifacts partially limit radiographic detail. IMPRESSION: Consolidation left lower hemithorax. Peribronchial thickening as discussed above. Continued follow-up is needed. If symptoms persist or worsen, CT chest could be performed. Dictated by: Willem Box M.D. on 11/02/2024 at 10:08 Approved by: Willem Box M.D. on 11/02/2024 at 10:14
--- NOTE | 2024-11-02 08:47 | DI.CT.S_ITS ---
PROCEDURE: CT HEAD/BRAIN WO CON INDICATIONS: seizure TECHNIQUE: Noncontrast 4.5 mm thick angled axial sections acquired from the foramen magnum to the vertex, with coronal and sagittal reformats. For radiation dose reduction, the following was used: automated exposure control, adjustment of mA and/or kV according to patient size. COMPARISON: None. FINDINGS: Image quality: Diagnostic. CSF spaces: Basal cisterns are patent. No extra-axial fluid collections. The ventricles are symmetric in size and shape. Brain: No intracranial bleeds or mass effect. There is cerebral volume loss, with resultant ventricular and sulcal prominence. There are periventricular and deep white matter chronic small vessel ischemic changes. Left temporal encephalomalacia. This is likely posttraumatic. There is intracranial internal carotid artery atherosclerosis. Skull and face: Calvarium and visualized facial bones appear intact, without suspicious lesions. Sinuses: Mild bilateral maxillary sinus disease. IMPRESSION: Posttraumatic encephalomalacia, left temporal lobe. No acute intracranial process. Dictated by: Akhil Arauz M.D. on 11/02/2024 at 11:11 Approved by: Akhil Arauz M.D. on 11/02/2024 at 11:13
--- NOTE | 2024-11-02 08:48 | EKG_ITS ---
[address] [address] Test Date: 2024-11-02 Pat Name: Beverly Neal Department: Room: Gender: Male Abstract Writer: EILEEN : 1975 Requested By: Order Number: [id number] Reading MD: Gavino Winslow MD Measurements Intervals [place] Rate: 139 P: 40 ND: 130 QRS: 14 QRSD: 94 T: 21 QT: 312 QTc: 474 Interpretive Statements Sinus tachycardia Possible Left atrial enlargement Minimal voltage criteria for LVH, may be normal variant ( [place] product ) T wave abnormality, consider inferior ischemia Electronically Signed On 11-02-2024 12:16:01 PDT by Gavino Winslow MD
[2024-11-02] MEDS: MIDAZOLAM 2 MG/2 ML VIAL 10 MG IV (09:00)
[2024-11-02] MEDS: SODIUM CHLORIDE 0.9% 1,000 ML 1000 ML IV (09:05)
[2024-11-02 09:07] LABS: Add Manual Diff / Slide Review NO; Hematocrit 46.3 % (41-53); Hemoglobin 15.7 g/dL (13.5-17.5); Lymphocytes Absolute Auto 4200 /uL (1100-4500); Mean Corpuscular HGB Conc 34.0 % (30-36); Mean Corpuscular Hemoglobin 32.6 PG (26-34); Mean Corpuscular Volume 95.9 fL (80-100); Platelet Count 255 X10^3/uL (150-400)
[2024-11-02 09:09] LABS: Acetaminophen < 10 ug/mL (10-30); Alanine Aminotransferase 106 IU/L (<50); Albumin 4.8 g/dL (3.5-5.0); Albumin Globulin Ratio 1.4 (1.0-2.8); Alkaline Phosphatase 108 U/L (38-126); Blood Urea Nitrogen 12 mg/dL (9-20); Calcium 8.5 mg/dL (8.4-10.2); Carbon Dioxide 11 mmol/L (22-32); Chloride 104 mmol/L (98-107); Creatine Kinase 166 U/L (55-170); Estimated Glomerular Filt Rate > 60 mL/min (>60); Ethanol (ETOH) < 10 mg/dL (<10); Globulin 3.4 g/dL (1.7-4.1); Glucose 225 mg/dL (70-99); HEMOLYSIS < 15 (0-50); Potassium 3.6 mmol/L (3.4-5.1); Salicylate < 1.0 mg/dL (<20); Sodium 141 mmol/L (137-145); Total Protein 8.2 g/dL (6.3-8.2)
[2024-11-02 09:14] LABS: Allen Test for ABG Passed? Positive; Blood Gas Collection Site Left Radial; Delivery System Adult Ventilator; HCO3 ABG 19 mmol/L (23-27); Oxygen Saturation ABG 97 % (95-100); PCO2 ABG 57.7 mmHg (35-45); PEEP 5; PO2 ABG 127 mmHg (80-100); TCO2 ABG 19 mmol/L (23-27)
[2024-11-02] MEDS: SODIUM CHLORIDE 0.9% IV (09:14)
[2024-11-02] MEDS: LEVETIRACETAM IV (09:14)
[2024-11-02] MEDS: MIDAZOLAM 50 MG in DEXTROSE 5 % IN WATER 40 ML IV (09:14)
[2024-11-02 09:16] LABS: Lactate (Lactic Acid) 12.7 mmol/L (0.7-2.1)
[2024-11-02 09:21] LABS: Troponin I 0.014 ng/mL (0.01-0.034)
[2024-11-02 09:26] LABS: Procalcitonin 0.098 ng/mL (<0.5)
[2024-11-02 09:36] LABS: Appearance Urine UA CLEAR; Bilirubin Urine UA NEGATIVE (NEGATIVE); Color Urine UA YELLOW; Glucose Urine UA NEGATIVE (Negative); Ketones Urine UA NEGATIVE (NEGATIVE); Leukocyte Esterase Urine UA NEGATIVE (NEGATIVE); Nitrite Urine UA NEGATIVE (Negative); Occult Blood Urine UA 2+ (Negative); Protein Urine UA 2+ (Negative); Specific Gravity Urine UA >=1.030 (1.000-1.035); Urobilinogen Urine UA 0.2 E.U./dL (0.2); pH Urine UA 6.0 (4.5-8.0)
[2024-11-02 09:40] LABS: Ammonia (NH3) 68 umol/L (9-30)
[2024-11-02 09:40] LABS: Ur Creatinine Normal (Normal); Ur Specific Gravity Normal (Normal); Urine pH Normal (Normal)
[2024-11-02 09:41] LABS: UR Morphine/Opiate cutoff 300 Negative (Negative); Urine MDMA Negative (Negative); Urine Methamphetamines Negative (Negative); Urine THC Positive (Negative); Urine Tricyclic Antidepressant Negative (Negative)
[2024-11-02 09:46] LABS: Culture Indicated Urine Cult Not Indicated
--- NOTE | 2024-11-02 10:00 | ED_ITS ---
HPI - Seizure General Chief Complaint: Seizure Stated Complaint: seizure Time Seen by Provider: 11/02/24 08:44 Source: EMS Mode of arrival: EMS History of Present Illness HPI Narrative: 49-year-old man with a known history of seizure disorder which apparently started following a traumatic brain injury who is on Keppra and has been taking his medication as prescribed according to his he is brought in by EMS intubated after suffering multiple seizures at home. He also had 1 more witnessed seizure from EMS. Apparently, when they found him his GCS was 3 with snoring respirations and at that time they decided to intubate him. He also received some ketamine and benzodiazepine from EMS but he seems to still be having some generalized body shaking despite these interventions. His denies any fall. Related Data Previous Rx's ?Medication ?Instructions ?Recorded oxycodone-acetaminophen 5 mg-325 1 tab PO Q6H PRN pain #14 tabs 02/23/24 mg tablet (Percocet) levetiracetam 750 mg tablet 750 mg PO BID #180 tabs Allergies Allergy/AdvReac Type Severity Reaction Status Date / Time No Known Drug Allergies Allergy Verified 10/21/23 12:45 Review of Systems Review of Systems ROS Unobtainable: Unobtainable due to mental status/LOC Patient History Medical History Epilepsy (~2021) TBI (traumatic brain injury) Social History marital status: details: Moved from [facility]. 3 step boys. household members: spouse occupational status: employed (self employed) current occupational exposures/hazards: No Smoking Status: Unknown if ever smoked Smoking Status: Unknown if ever smoked alcohol intake frequency: a few times a week Exam Initial Vital Signs Initial Vital Signs: Vital Signs Temperature 98.2 F 11/02/24 08:39 Pulse Rate 133 H 11/02/24 08:39 Respiratory Rate 18 11/02/24 08:39 Blood Pressure 209/141 H 11/02/24 08:39 Pulse Oximetry 99 11/02/24 08:39 Oxygen Delivery Method Mechanical Ventilation 11/02/24 08:39 Const General: patient mechanically ventilated Nutritional Appearance: overweight Limitations: altered mental status HENMT Head: normal to inspection, normocephalic, atraumatic, No Schumacher's sign, No raccoon eyes and No scalp lesion Ears: TM normal on the right and TM normal on the left Mouth: No mouth trauma Neck Neck: normal visual inspection Chest Chest: normal inspection of the chest Resp Auscultation: clear to auscultation bilaterally Cardio Rate: tachycardic Rhythm: regular rhythm Heart Sounds: S1 normal and S2 normal GI Inspection: normal to inspection Course Course Course Narrative: Patient brought in by EMS intubated. He continued to have apparent tonic-clonic activity with generalized body shaking and spikes in his blood pressure at the same time. He was given additional IV benzodiazepines in the ER, loaded with a weight based dose of Keppra IV and eventually was started on a Versed drip and then a propofol drip. His sees his seizure activity continue to improve as did his blood pressure. Eventually I spoke with Dr. Pope, neurologist on-call from [facility] who accepted the patient to the neuro ICU there. He was transported by air. Orders Ordered: ED Orders 11/02/24 08:45 Acetaminophen Stat Complete Blood Count AUTO DIFF Stat Comprehensive Metabolic Panel Stat Ethanol (ETOH) Stat Lactate (Lactic Acid) Stat Levetiracetam Keppra Stat Procalcitonin Stat Salicylate Stat Troponin & CK Cardiac Panel Stat 11/02/24 08:47 CT head/brain wo con Stat XR chest 1V Stat EKG-12 Lead Stat 11/02/24 09:00 Blood Culture Stat 11/02/24 09:05 Urinalysis and Microscopic Stat Urine Drug Screen, Rapid Stat 11/02/24 09:25 Ammonia (NH3) Stat 11/02/24 09:51 Arterial Blood Gas DAILY Ventilator Order Midazolam HCl 50 mg/ Dextrose 50 mls @ 5 mls/hr IV TITRATE ONE; Protocol Stop: 11/02/24 18:56 Last Titration: 11/02/24 09:35 Dose: 11 mg/hr, 11 mls/hr Documented By: Titration: 11/02/24 09:33 Dose: 8 mg/hr, 8 mls/hr Documented By: Titration: 11/02/24 09:32 Dose: 7 mg/hr, 7 mls/hr Documented By: Titration: 11/02/24 09:27 Dose: 6 mg/hr, 6 mls/hr Documented By: Admin: 11/02/24 09:14 Dose: 5 mg/hr, 5 mls/hr Documented By: GABRIEL Propofol (Diprivan) 1,000 mg in 100 mls @ 3.336 mls/hr IV TITRATE EMILY; Protocol Last Admin: 11/02/24 09:45 Dose: 10.04 mcg/kg/min, 6.7 mls/hr Documented By: GABRIEL Discontinued Medications Diazepam (Diazepam 10 Mg/2 Ml Syringe) 10 mg IV NOW ONE Stop: 11/02/24 09:09 Last Admin: 11/02/24 09:09 Dose: 10 mg Documented By: GABRIEL Levetiracetam 3,350 mg/ Sodium (Chloride) 133.5 mls @ 534 mls/hr IV NOW ONE Stop: 11/02/24 08:49 Last Admin: 11/02/24 09:14 Dose: 534 mls/hr Documented By: GABRIEL Midazolam HCl (Midazolam 2 Mg/2 Ml Vial) 10 mg IV NOW ONE Stop: 11/02/24 09:04 Last Admin: 11/02/24 09:00 Dose: 10 mg Documented By: GABRIEL Vital Signs Vital signs: Vital Signs - 8 hr 11/02/24 08:39 Temperature 98.2 F Pulse Rate 133 H Respiratory Rate 18 Blood Pressure 209/141 H Pulse Oximetry 99 Oxygen Delivery Method Mechanical Ventilation MDM - Seizure Lab Data 11/02/24 08:45 11/02/24 08:45 Labs: Lab Results 11/02/24 11/02/24 11/02/24 Range/Units 08:45 09:04 09:05 WBC 12.0 H (4.5-11.0) X10^3/uL RBC 4.82 (4.5-5.9) X10^6/uL Hgb 15.7 (13.5-17.5) g/dL Hct 46.3 (41-53) % MCV 95.9 (80-100) fL MCH 32.6 (26-34) PG MCHC 34.0 (30-36) % RDW 13.4 (11.6-14.8) % Plt Count 255 (150-400) X10^3/uL Neut % (Auto) 56.8 (50-75) % Lymph % (Auto) 34.8 (25-40) % Pratt % (Auto) 5.3 (3-14) % Eos % (Auto) 2.4 (2-4) % Baso % (Auto) 0.7 (0-2) % Neut # (Auto) 6800 (1398-4602) /uL Lymph # (Auto) 4200 (4722-9898) /uL Pratt # (Auto) 600 (0-900) /uL Eos # (Auto) 300 (0-450) /uL Baso # (Auto) 100 (0-100) /uL ABG Sample Site Left radial ABG pH 7.13 L* (7.35-7.45) ABG pCO2 57.7 H (35-45) mmHg ABG pO2 127 H (80-100) mmHg ABG HCO3 19 L (23-27) mmol/L ABG Total CO2 19 L (23-27) mmol/L ABG O2 Saturation 97 (95-100) % ABG Base Excess -10.9 L (-2-3) mmol/L Simón Test Positive Respiration Rate 16 O2 Delivery Device Adult ventilator FiO2 % 60 % % PEEP or CPAP 5 Sodium 141 (137-145) mmol/L Potassium 3.6 (3.4-5.1) mmol/L Chloride 104 (98-107) mmol/L Carbon Dioxide 11 L (22-32) mmol/L BUN 12 (9-20) mg/dL Creatinine 1.06 (0.66-1.25) mg/dL Estimated GFR > 60 (>60) mL/min BUN/Creatinine Ratio 11.3 (6-22) Glucose 225 H (70-99) mg/dL Lactate 12.7 H* (0.7-2.1) mmol/L Calcium 8.5 (8.4-10.2) mg/dL Total Bilirubin 1.0 (0.2-1.3) mg/dL AST 130 H (17-59) IU/L ALT 106 H (<50) IU/L Alkaline Phosphatase 108 (38-126) U/L Ammonia (9-30) umol/L Total Creatine Kinase 166 (55-170) U/L Troponin I 0.014 (0.01-0.034) ng/mL Total Protein 8.2 (6.3-8.2) g/dL Albumin 4.8 (3.5-5.0) g/dL Globulin 3.4 (1.7-4.1) g/dL Albumin/Globulin Ratio 1.4 (1.0-2.8) Procalcitonin 0.098 (<0.5) ng/mL Urine Color Yellow Urine Appearance Clear Urine pH 6.0 (4.5-8.0) Ur Specific [place] >=1.030 H (1.000-1.035) Urine Protein 2+ H (Negative) Urine Glucose (UA) Negative (Negative) g/dL Urine Ketones Negative (NEGATIVE) Urine Occult Blood 2+ H (Negative) Urine Nitrate Negative (Negative) Urine Bilirubin Negative (NEGATIVE) Urine Urobilinogen 0.2 (0.2) E.U./dL Ur Leukocyte Esterase Negative (NEGATIVE) Urine RBC 5-10/hpf H (0-5/HPF) Urine WBC 1-5/hpf (0-5/HPF) Ur Squamous Epith Cells 1-5 /hpf (0-5/HPF) Urine Bacteria Occasional (0-1) (None) Ur Culture Indicated? Cult not indicated Vol Urine Centrifuged 10ml (spun) Salicylates < 1.0 (<20) mg/dL U Opiates 300ng/mL cut Negative (Negative) Ur Oxycodone Screen Negative (Negative) Urine Methadone Screen Negative (Negative) Acetaminophen < 10 (10-30) ug/mL Ur Barbiturates Screen Negative (Negative) U Tricyclic Antidepress Negative (Negative) Ur Phencyclidine Scrn Negative (Negative) Ur Amphetamines Screen Negative (Negative) U Methamphetamines Scrn Negative (Negative) Ur MDMA Scrn (Ecstasy) Negative (Negative) U Benzodiazepines Scrn Negative (Negative) Urine Cocaine Screen Positive H (Negative) U Marijuana (THC) Screen Positive H (Negative) Urine Specific [place] (Normal) Ethyl Alcohol < 10 (<10) mg/dL Ur Creatinine (Normal) 11/02/24 11/02/24 Range/Units 09:05 09:25 WBC (4.5-11.0) X10^3/uL RBC (4.5-5.9) X10^6/uL Hgb (13.5-17.5) g/dL Hct (41-53) % MCV (80-100) fL MCH (26-34) PG MCHC (30-36) % RDW (11.6-14.8) % Plt Count (150-400) X10^3/uL Neut % (Auto) (50-75) % Lymph % (Auto) (25-40) % Pratt % (Auto) (3-14) % Eos % (Auto) (2-4) % Baso % (Auto) (0-2) % Neut # (Auto) (9138-1669) /uL Lymph # (Auto) (6894-3148) /uL Pratt # (Auto) (0-900) /uL Eos # (Auto) (0-450) /uL Baso # (Auto) (0-100) /uL ABG Sample Site ABG pH (7.35-7.45) ABG pCO2 (35-45) mmHg ABG pO2 (80-100) mmHg ABG HCO3 (23-27) mmol/L ABG Total CO2 (23-27) mmol/L ABG O2 Saturation (95-100) % ABG Base Excess (-2-3) mmol/L Simón Test Respiration Rate O2 Delivery Device FiO2 % % PEEP or CPAP Sodium (137-145) mmol/L Potassium (3.4-5.1) mmol/L Chloride (98-107) mmol/L Carbon Dioxide (22-32) mmol/L BUN (9-20) mg/dL Creatinine (0.66-1.25) mg/dL Estimated GFR (>60) mL/min BUN/Creatinine Ratio (6-22) Glucose (70-99) mg/dL Lactate (0.7-2.1) mmol/L Calcium (8.4-10.2) mg/dL Total Bilirubin (0.2-1.3) mg/dL AST (17-59) IU/L ALT (<50) IU/L Alkaline Phosphatase (38-126) U/L Ammonia 68 H (9-30) umol/L Total Creatine Kinase (55-170) U/L Troponin I (0.01-0.034) ng/mL Total Protein (6.3-8.2) g/dL Albumin (3.5-5.0) g/dL Globulin (1.7-4.1) g/dL Albumin/Globulin Ratio (1.0-2.8) Procalcitonin (<0.5) ng/mL Urine Color Urine Appearance Urine pH Normal (4.5-8.0) Ur Specific Sand[place] (1.000-1.035) Urine Protein (Negative) Urine Glucose (UA) (Negative) g/dL Urine Ketones (NEGATIVE) Urine Occult Blood (Negative) Urine Nitrate (Negative) Urine Bilirubin (NEGATIVE) Urine Urobilinogen (0.2) E.U./dL Ur Leukocyte Esterase (NEGATIVE) Urine RBC (0-5/HPF) Urine WBC (0-5/HPF) Ur Squamous Epith Cells (0-5/HPF) Urine Bacteria (None) Ur Culture Indicated? Vol Urine Centrifuged Salicylates (<20) mg/dL U Opiates 300ng/mL cut (Negative) Ur Oxycodone Screen (Negative) Urine Methadone Screen (Negative) Acetaminophen (10-30) ug/mL Ur Barbiturates Screen (Negative) U Tricyclic Antidepress (Negative) Ur Phencyclidine Scrn (Negative) Ur Amphetamines Screen (Negative) U Methamphetamines Scrn (Negative) Ur MDMA Scrn (Ecstasy) (Negative) U Benzodiazepines Scrn (Negative) Urine Cocaine Screen (Negative) U Marijuana (THC) Screen (Negative) Urine Specific [place] Normal (Normal) Ethyl Alcohol (<10) mg/dL Ur Creatinine Normal (Normal) ECG Data Interpretation: sinus tach. 139bpm. Discharge Plan Departure Patient Disposition: [facility] Clinical Impression: Status epilepticus Prescriptions: No Action levetiracetam 750 mg tablet 750 mg PO BID Qty: 180 2RF oxycodone-acetaminophen [Percocet] 5-325 mg tablet 1 tab PO Q6H PRN (Reason: pain) Qty: 14 0RF Referrals: Soila Carrillo MD [Primary Care Provider, Family Practice]
--- NOTE | 2024-11-02 10:20 | PC.NURSE ---
Inserted by bouchra colby rn
[2024-11-02 10:33] LABS: Reflexed Lactate in 2 Hours Y
--- NOTE | 2024-11-02 10:52 | PC.NURSE ---
Versed and propofol gtt continued with [employer]
[2024-11-06 01:10] LABS: Levetiracetam Keppra < 2.0 ug/mL (10.0-40.0)
== END 2024-11-02 11:01 | disposition short-term general hospital (02) ==
PROVIDERS: Emergency Provider Emergency Medicine; PCP Family Medicine
DX: G40.901 Epilepsy, unspecified, not intractable, with status epilepticus (principal)
CPT/HCPCS: 36415; 36600; 70450; 71045; 80053; 80177; 80305; 80320; 80329; 81001; 82140; 82550; 82805; 83605; 84145; 84484; 85025; 87040; 93005; 93010; 94760; 94799; 96365; 96368; 96375; 99152; 99153; 99285; G0480; J1953; J2250; J2704; J3360